=== PATIENT | female | born 1990 | race Caucasian/White ===

== ENCOUNTER 2017-08-28 05:09 | Day surgery (SDC) | payer BC ==
[2017-08-26 11:57] VITALS: BMI 25.4
[2017-08-28] MEDS ORDERED: DEXAMETHASONE SOD PHOSPHATE/PF 10 MG/ML SDV ONE (08:42)
[2017-08-28] MEDS ORDERED: BUPIVACAINE HCL/PF 0.5% (5MG/ML) 10 ML VIAL ONE (08:42)
[2017-08-28] MEDS ORDERED: MIDAZOLAM HCL 2 MG/2 ML SINGLE DOSE VIAL ONE ×2 (08:43)
--- NOTE | 2017-08-28 08:55 | HP ---
[facility] - Chief Complaint Chief Complaint: left ankle pain History of Present Illness: left achilles tendon rupture History Source: Patient Limitations to Obtaining History: No Limitations - Past Medical History Allergies/Adverse Reactions: Allergies Allergy/AdvReac Type Severity Reaction Status Date / Time apple Allergy Swelling Verified 08/26/17 11:52 kiwi Allergy Swelling Verified 08/26/17 11:52 peach Allergy Swelling Verified 08/26/17 11:52 strawberry Allergy Swelling Verified 08/26/17 11:52 ...LMP: 08/22/17 - Current Medications Current Medications: Home Medications Medication Instructions Recorded NK [No Known Home Medication] 08/26/17 [facility] Physical Exam - Physical Examination General Appearance: Well Nourished ENT: Clear Lung: Clear to auscultation Heart: Regular rate & rhythm Breasts: Soft Abdomen: Soft Extremities: No edema [facility] Impression/Plan - Impression/Plan Impression: left achilles tendon rupture Operative Procedure: left CTR, tenosynovectomy Date to be Performed: 08/28/17
--- NOTE | 2017-08-28 08:57 | OP ---
Operative Note - Note: Operative Date: 08/28/17 Pre-Operative Diagnosis: left achilles tendon rupture Operation: left achilles tendon repair Post-Operative Diagnosis: Same as Pre-op Surgeon: Bogdan Hogue Anesthesiologist/ANALYSIS EVALUATOR: Paul Dsouza Anesthesia: General, Local Estimated Blood Loss (mls): 0 Drains, Volume Out (mls): 0 Blood Volume Replaced (mls): 0 Fluid Volume Replaced (mls): 700 Operative Report Dictated: Yes
[2017-08-28] MEDS ORDERED: oxyCODONE HCL 5 MG TABLET PO PRN ×2 (09:34)
[2017-08-28] MEDS ORDERED: LIDOCAINE HCL/PF 2% SDV 5ML VIAL ONE (09:40)
[2017-08-28] MEDS ORDERED: ROCURONIUM BROMIDE 50 MG/5 ML VIAL ONE (09:40)
[2017-08-28] MEDS ORDERED: DEXAMETHASONE SOD PHOSPHATE 4 MG/1 ML VIAL ONE (09:40)
[2017-08-28] MEDS ORDERED: PROPOFOL 20 ML ONE (09:40)
[2017-08-28] MEDS ORDERED: ONDANSETRON 4 MG/2 ML VIAL IVPUSH PRN (09:51)
[2017-08-28] MEDS ORDERED: LACTATED RINGERS SOLUTION 1,000 ML IV SCH (10:00)
[2017-08-28] MEDS ORDERED: ceFAZolin SODIUM 1 GM VIAL IVPB ONE (10:50)
[2017-08-28] MEDS ORDERED: ceFAZolin SODIUM 1 GM VIAL ONE (10:54)
--- NOTE | 2017-08-28 11:50 | OP ---
Operative Note - Note: Operative Date: 08/28/17 Pre-Operative Diagnosis: left achilles tendon rupture Operation: left achilles tendon repair Implants: fiber wire x 4 Surgeon: Bogdan Hogue Anesthesiologist/BARREL STAVE INSPECTOR: Paul Dsouza Anesthesia: General, Local Estimated Blood Loss (mls): 0 Drains, Volume Out (mls): 0 Blood Volume Replaced (mls): 0 Fluid Volume Replaced (mls): 500 Operative Report Dictated: Yes
--- NOTE | 2017-08-28 13:10 | OP ---
DATE OF OPERATION: 08/28/2017 PREOPERATIVE DIAGNOSIS: Left Achilles tendon rupture. POSTOPERATIVE DIAGNOSIS: Left Achilles tendon rupture. PROCEDURE: Left Achilles tendon repair. SURGEON: Kristel Ashton MD JEWELRY DRILL OPERATOR: None. ANESTHESIOLOGIST: Yvette Miller ANESTHESIA: LMA anesthesia with popliteal block and adductor canal block. . DRAINS: None. COMPLICATIONS: None. SPECIMENS: None. BLOOD LOSS: None. BLOOD GIVEN: None. FLUID REPLACEMENT: 700 mL. INDICATIONS: This patient is a 26-year-old female with a preoperative diagnosis of an acute left Achilles tendon rupture. After understanding the potential risks, complications, alternatives, and benefits of surgery versus nonsurgical treatment, the patient elected to undergo this procedure. DESCRIPTION OF PROCEDURE: The patient was brought to the operating room, peripheral IV placed and IV sedation was given, 1 g of IV Ancef was given. LMA anesthesia was induced. The popliteal and adductor canal regional block was performed. Tourniquet was applied to the left upper thigh. The patient was then flipped from a supine to a prone position. Ample padding was placed throughout. The left lower extremity was prepped and draped in a sterile fashion, elevated and exsanguinated with an Esmarch bandage. Tourniquet inflated to 275 mmHg. A slightly curvilinear S-shaped incision was marked out over the posterior aspect of the left distal Achilles tendon. The incision was made with the No. 10 scalpel blade. Subcutaneous hemostasis was achieved with the Bovie cautery. Dissection with the Metzenbaum scissors down to the Achilles tendon sheath. It was opened up. A small hematoma was removed. It was extended distally and proximally exposing the 2 stumps of the completely torn Achilles tendon. Overall, my assessment of the tendon was that it was not of great quality, it was relatively thin, and the tendinous portion ended quite distally. That being said, I cleaned up the edges, cut off a small amount of inflammatory debris, and put in 4 FiberWires up and down in a locking fashion. I then got the slack out of all the FiberWires. Ankle was in position of about 40 degrees of plantar flexion. It was easy to get the 2 ends together, and I tied the 8 tails of the FiberWires to each other. It came together quite nicely. Insurance stitches were used, the tails cut, then, I used the additional FiberWire for 3 additional crossing single interrupted sutures. Overall, it came together quite nicely. I was able to move the ankle without too much tension on the repair. I used a No. 15 scalpel blade to make 4 small cuts in the anterior aspect of the Achilles tendon sheath for better blood flow and to aid healing. Closure was done with 2-0 Vicryl in the deep dermal layer and a row of naheed. The area was then washed and dried, covered with Xeroform and 4 x 4 Webril, and a posterior 6-inch Ortho-Glass splint was applied with the foot in 40 degrees of plantar flexion and was wrapped with 2 Sai bandages. Total tourniquet time was 46 minutes. There were no complications during the case. The patient tolerated the procedure quite well and was brought to the ambulatory recovery room in stable condition. KRISTEL ASHTON M.D. [id number]
[2017-08-28 13:47] VITALS: TEMP 97.8
[2017-08-28 17:42] VITALS: BP 112/70; PULSE 72
== END 2017-08-28 14:30 | disposition home or self-care (01) ==
LOC: JASU-SURG 05:09
PROVIDERS: ATTEND Orthopaedic Surgery
PROC: 0LQP0ZZ Repair Left Lower Leg Tendon, Open Approach (ICD-10-PCS; principal; 2017-08-28 10:00)
DX: S86.012A Strain of left Achilles tendon, initial encounter (principal); X58.XXXA Exposure to other specified factors, initial encounter; Y93.9 Activity, unspecified; Y92.9 Unspecified place or not applicable
CPT/HCPCS: 94760; 97116-GP